=== PATIENT | female | born 1950 | race Caucasian/White ===

== ENCOUNTER 2018-08-30 14:00 | Outpatient (CLI) | payer MEDICARE, OTHER ==
--- NOTE | 2018-08-31 09:35 | XRAY Report ---
Reason: L ANKLE PAIN,SWELLING Procedure Date: 08/30/2018 Accession Number: [id number] / [id number] Procedure: XR - Ankle 3 View LT CPT Code: FULL RESULT: EXAM: LEFT ANKLE RADIOGRAPHY EXAM DATE: 08/30/2018 02:07 PM. CLINICAL HISTORY: Left ankle pain and swelling for 1 month. No known injury. COMPARISON: None. TECHNIQUE: 3 views. FINDINGS: Bones: Normal. No fractures or bone lesions. Joints: Normal. No significant effusion. No subluxations. The ankle mortise is normally aligned. Soft Tissues: Medial and lateral ankle soft tissue swelling present diffusely. IMPRESSION: 1. Diffuse ankle soft tissue swelling. 2. No fracture, effusion or malalignment. RADIA
== END 2018-08-30 14:01 | disposition home or self-care (01) ==
LOC: DI 14:00
PROVIDERS: ATTEND Physician Assistant Medical
DX: M25.572 Pain in left ankle and joints of left foot (principal); R22.42 Localized swelling, mass and lump, left lower limb

== ENCOUNTER 2023-01-11 12:25 | Outpatient (CLI) | payer MEDICARE ==
--- NOTE | 2023-01-11 15:41 | DEXA Report ---
PROCEDURE: Dexa Spine and/or Hip INDICATIONS: POST MENOPAUSAL TECHNIQUE: Dual energy x-ray absorptiometry (DXA) was performed on a [employer] System. Regions measur ed are the AP Spine, femoral neck, and if needed forearm. COMPARISON: None FINDINGS: Lumbar Spine: Bone Mineral Density 1.187 g/cm/cm,T score 0.1. Normal Left Femoral Neck: Bone Mineral Density 0.759 g/cm/cm, T score -2.0. Osteopenia Left Hip: Bone Mineral Density 0.879 g/cm/cm,T score -1.0. Normal (T score greater or equal to -1.0: NORMAL) (T score from -1.1 to -2.4: OSTEOPENIA) (T score less than or equal to -2.5 to: OSTEOPOROSIS) Impression: By WHO criteria, this patient has low bone density (osteopenia). Patients with diagnosis of osteoporosis or osteopenia should have regular bone mineral density assess ment. For those eligible for Medicare, routine testing is allowed once every 2 years. Testing frequ ency can be increased for patients who have rapidly progressing disease or for those who are receivin g medical therapy to restore bone mass. Reviewed by: Rosy Mccann MD on 01/11/2023 3:40 PM PDT Approved by: Rosy Mccann MD on 01/11/2023 3:40 PM PDT Station ID: [id number]
== END 2023-01-11 12:26 | disposition home or self-care (01) ==
LOC: DI 12:25
PROVIDERS: ATTEND Nurse Practitioner Family
DX: Z13.820 Encounter for screening for osteoporosis (principal); M85.89 Other specified disorders of bone density and structure, multiple sites; Z78.0 Asymptomatic menopausal state

== ENCOUNTER 2023-01-12 17:45 | Emergency (ER) | payer OTHER, MEDICARE ==
[2023-01-12 18:21] VITALS: O2SAT 100
[2023-01-12] MEDS ORDERED: KETOROLAC 30 MG/ML VIAL IM STA (20:21)
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
[2023-01-12 23:06] VITALS: BP 152/70
== END 2023-01-12 23:01 | disposition home or self-care (01) ==
LOC: ED 17:45
DX: Z04.1 Encounter for examination and observation following transport accident (principal); R07.89 Other chest pain
CPT/HCPCS: 96372; 99283

== ENCOUNTER 2023-12-06 10:44 | Outpatient (CLI) | payer MEDICARE ==
--- NOTE | 2023-12-07 11:35 | Mammography Report ---
BILATERAL DIGITAL SCREENING MAMMOGRAM 3D/2D: 12/06/2023 CLINICAL: Routine screening. Comparison is made to exam dated: 09/21/2021 mammogram - [facility]. There are scattered areas of fibroglandular density in both breasts (category b / 25%-50% glandular t issue). No significant masses, calcifications, or other findings are seen in either breast. There has been no significant interval change. IMPRESSION: NEGATIVE There is no mammographic evidence of malignancy. A 1 year screening mammogram is recommended. Based on the Tyrer Cuzick model (a risk assessment model) the patient's lifetime risk is 5.8% and her 10 year risk is 4.8%. According to the ACR, ACS, and NCCN guidelines, an annual breast MRI exam mariela g with mammogram is recommended if the patient's lifetime risk is 20% or greater. This exam was interpreted at Station ID: [id number]. NOTE: For mammograms, a report in lay terms will be sent to the patient. Approximately 15% of breast malignancies will not be visualized mammographically. In the management of a palpable breast mass, a negative mammogram must not discourage biopsy of a clinically suspicious lesion. Electronically Signed By: Lobito black/penrad:12/06/2023 13:08:37 letter sent: No_Letter ACR BI-RADS Category 1: Negative 3341F PARENCHYMAL PATTERN: (A) - The breast(s) demonstrate(s) scattered fibroglandular densities. BI-RADS CATEGORY: (1) - 1 RECOMMENDATION: (ANNUAL) - Recommend routine annual screening mammography. [id number] 1 year screening LATERALITY: (B)
== END 2023-12-06 10:45 | disposition home or self-care (01) ==
LOC: DI.N 10:44
PROVIDERS: ATTEND Family Medicine
DX: Z12.31 Encounter for screening mammogram for malignant neoplasm of breast (principal); R92.323 Mammographic fibroglandular density, bilateral breasts